=== PATIENT | female | born 1995 | race African-American/Black ===

== ENCOUNTER 2019-12-23 20:24 | Emergency (ER) | payer OTHER, MEDICAID ==
[~2019-12-23] VITALS: Ht 162.6 cm; Wt 81.6 kg
[2019-12-23 20:40] VITALS: BP 157/82
--- NOTE | 2019-12-23 20:40 | NUR ---
ED Nurse Note: Pt walked into ED from home for c/o diffuse hives onset yesterday after using a lotion she has never used before. Pt reports itching to bilat arms and legs along with the hives. Pt is aaox4, no cardiac or respiratory distress noted.
[2019-12-23] MEDS ORDERED: BENADRYL ALLERG25 M1 PO (21:04)
--- NOTE | 2019-12-23 21:05 | Emergency Room Report ---
History of Present Illness General Chief Complaint: Allergic Reaction Source: Patient Present Illness HPI Disclaimer: Please note that this report is being documented using [employer] technology. This can lead to erroneous entry secondary to incorrect interpretation by the dictating instrument. HPI: 24-year-old otherwise healthy female presents for evaluation of rash. Patient noted a rash over the upper and lower extremities that is itchy with raised urticarial lesions over the arms and legs. She started a new body wash 2 days ago. Has never had a similar reaction in the past. Denies wheezing, shortness of breath, throat closure, difficulty swallowing, skin sloughing or any other changes in her health. Took Claritin earlier this morning noting improvement in her symptoms. Denies pain. Itching is improving after taking Claritin as well. No other known allergens. PMH: Reviewed PSH: Reviewed Allergies: Denies Social Hx: Denies Allergies: Coded Allergies: No Known Allergies (Unverified , 12/23/19) COVID-19 Screening Contact w/high risk pt: No Recent Travel to affected area: No Experienced COVID-19 symptoms?: No COVID-19 Testing performed [employer] SERVICES SPECIALIST: No Patient History Last Menstrual Period: 12/10/19 Now: No Nursing Documentation-PMH Past Medical History: No Stated History Review of Systems All Other Systems: negative except mentioned in HPI Physical Exam Vital Signs Date Time Temp Pulse Resp B/P (MAP) Pulse Ox O2 Delivery O2 Flow Rate FiO2 12/23/19 20:30 97.9 101 20 157/82 (107) 97 Room Air General: Awake and alert, no acute distress HEENT: NC/AT. EOMI. no stridor, no wheezing Resp: Normal work of breathing, no stridor, no wheezing Skin: Intact. Raised urticaria over the upper and lower extremities. No skin sloughing, Nikolsky negative, no erythema, no purulent drainage. No excoriations. MSK: Normal tone and bulk. Moving all extremities. No obvious deformity. Neuro: Awake and alert. Mentating appropriately Medical Decision Making Diagnostic Impression: Primary Impression: Allergic reaction ER Course 24-year-old female presents for evaluation of 2 days itching urticarial rash after applying a new body lotion. Mild allergic reaction without evidence of [place] , Banegas-Cole's or other significant pathology. No evidence of respiratory compromise and patient is otherwise in her usual state of health without other complaints. She can continue Claritin but we will add Benadryl. No indication for labs or imaging at this time. We will follow-up with PMD as needed and return with any new or worsening symptoms. She understands and agrees with this treatment plan. Last Vital Signs Date Time Temp Pulse Resp B/P (MAP) Pulse Ox O2 Delivery O2 Flow Rate FiO2 12/23/19 20:40 101 20 Room Air 12/23/19 20:40 97.9 157/82 97 Disposition: HOME, SELF-CARE Condition: Stable Scripts Diphenhydramine Hcl (BENADRYL ALLERGY) 25 Mg Tablet 25 MG PO Q6H for 4 Days, #20 TAB Prov: Clay Mccain MD 12/23/19 Patient Instructions: Allergies Additional Instructions: Take the Benadryl every 6 hours for the next 3 days to help with the itching and swelling of your arms and legs. Do not use that lotion any longer. Return to the emergency department with tightness in your chest, wheezing, difficulty breathing, difficulty swallowing or worsening of the rash. Clay Mccain MD December 23, 2019 21:05
[2019-12-23 21:10] VITALS: BP 145/75
--- NOTE | 2019-12-23 21:10 | NUR ---
ER DISCHARGE NOTE: Patient is cleared to be discharged per ERMD, pt is aox4, on room air, with stable vital signs. pt was given dc and prescription instructions, pt was able to verbalize understanding, pt id band removed. pt is able to ambulate with steady gait. pt took all belongings.
== END 2019-12-23 21:10 | disposition home or self-care (01) ==
LOC: EMR 20:45
DX: T78.49XA Other allergy, initial encounter (principal); X58.XXXA Exposure to other specified factors, initial encounter
CPT/HCPCS: 99282